=== PATIENT | female | born 1990 | race Caucasian/White ===

== ENCOUNTER 2018-07-02 22:24 | Emergency (ER) | payer SELFPAY ==
[~2018-07-02] VITALS: Ht 167.6 cm; Wt 59.9 kg
--- NOTE | 2018-07-02 22:50 | NUR ---
bibs c/o "kicked laundry door, swang back and hit me".-ko+ hailee lip laceration. -dizziness or n/v, seen and assessed, placed on er bed 4. awaiting to be eval by er md.
[2018-07-03] MEDS ORDERED: ACETAMINOPHEN ES 500 MG TABLET PO ONE
[2018-07-03] MEDS ORDERED: ACETAMINOPHEN ES 500 MG TABLET ONE (00:06)
--- NOTE | 2018-07-03 00:20 | NUR ---
PT LACERATION STITCHED, BY ER MD, MINIMAL SWELLING NOTED, RX KEFLEX GIVEN.
--- NOTE | 2018-07-03 00:50 | NUR ---
Patient discharged to home in stable condition. Written and verbal after care instructions given, with rx for keflex x 14 days. Patient verbalizes understanding of instruction.
[2018-07-03 00:51] VITALS: BP 126/80
== END 2018-07-03 00:52 | disposition home or self-care (01) ==
LOC: ER 22:30
DX: S01.112A Laceration without foreign body of left eyelid and periocular area, initial encounter (principal); S01.511A Laceration without foreign body of lip, initial encounter; W22.8XXA Striking against or struck by other objects, initial encounter; Y93.89 Activity, other specified; Y92.89 Other specified places as the place of occurrence of the external cause; Y99.8 Other external cause status
CPT/HCPCS: 99283; A4606